=== PATIENT | male | born 1940 | race Caucasian/White ===

== ENCOUNTER 2020-07-05 09:32 | Day surgery (SDC) | payer MEDICARE ==
[~2020-07-05] VITALS: Ht 165.1 cm; Wt 81.0 kg
[~2020-07-05 09:32] MED LIST: ALLERCLEAR10 MG PO; FURO40 PO; Klor-Con 1010 MEQ PO; LISI20 PO; OMEP20ER PO; XARELTO20 MG PO; ZOLP5 PO
--- NOTE | 2020-07-05 10:07 | NUR ---
Ambulatory in Day Surgery History, Chart, Medications and Allergies reviewed before start of procedure. Lungs clear T/O to Auscultation. Pre-Op teaching done. Pt verbalizes understanding.
--- NOTE | 2020-07-05 15:40 | NUR ---
PT WORKING WITH THERAPY. WILL GIVE TXA WHEN DONE WORKING WITH THERAPY. FAMILY PRESENT.
--- NOTE | 2020-07-05 18:59 | NUR ---
SHIFT SUMMARY PT EATING AND DRINKING, VOIDING. PT WORKED WITH THERAPY TODAY. PT BEEN UP TO CHAIR. CALL LIGHT IN REACH. POLAR PAC AND TEDS IN PLACE.
--- NOTE | 2020-07-05 21:11 | NUR ---
ASSUMED CARE AT 1900 PT UP TO CHAIR, A/O X4. DENIES PAIN. RN NOTIFIED THAT PT HAD SOME EMESIS AROUND 1999. AFTER EPISODE OF EMESIS PT REPORTED HE FELT MUCH BETTER AND STATED HE DID NOT NEED MEDICATION FOR NAUSEA AT THAT TIME. PT UP IN CHAIR AT THIS TIME, POLAR PACK AND SCDS IN PLACE, CALL LIGHT IN REACH.
--- NOTE | 2020-07-06 04:41 | NUR ---
SHIFT SUMMARY PT IS A/O X4. SBA WITH GAIT BELT AND FWW TO AMBULATE. PT AMBULATING, TOLERATING PO INTAKE, AND VOIDING. UP TO CHAIR OVERNIGHT WITH LEGS ELEVATED, POLAR PACK ON, AND SCDS IN PLACE. PT HAD ONE EPISODE OF EMESIS EARLY IN THE SHIFT AND THEN REPORTED HE FELT MUCH BETTER AND DENIED NEED FOR NAUSEA MEDS. PT REPORTS THAT PAIN IS WELL MANAGED WITH TYLENOL/TORADOL AND ICE PACK. PT RESTING IN BED AT THIS TIME WITH CALL LIGHT IN REACH.
[2020-07-06 05:33] LABS: BASOPHILS ABSOLUTE AUTO 0.02 K/mm3 (0.00-0.23); BASOPHILS PERCENT AUTO 0 % (0-2); EOSINOPHILS ABSOLUTE AUTO 0.15 K/mm3 (0.00-0.68); EOSINOPHILS PERCENT AUTO 1 % (0-6); Hematocrit 41.3 % (37.0-53.0); IMMATURE GRAN ABSOLUTE AUTO 0.04 K/mm3 (0.00-0.10); IMMATURE GRAN PERCENT AUTO 0 % (0-1); LYMPHOCYTES ABSOLUTE AUTO 2.26 K/mm3 (0.84-5.20); LYMPHOCYTES PERCENT AUTO 21 % (21-46); MONOCYTES ABSOLUTE AUTO 0.83 K/mm3 (0.16-1.47); MONOCYTES PERCENT AUTO 8 % (4-13); Mean Corpuscular HGB 31.6 pg (26.0-34.0); Mean Corpuscular HGB Conc 33.9 g/dL (31.5-36.5); Mean Corpuscular Volume 93 fL (80-100); Mean Platelet Volume 10.5 fL (9.1-12.4); NEUTROPHILS ABSOLUTE AUTO 7.39 K/mm3 (1.96-9.15); NEUTROPHILS PERCENT AUTO 69 % (41-73); Platelet Count 179 K/mm3 (150-400); RDW Coefficient Variation 13.2 % (11.7-14.2); RDW Standard Deviation 45.7 fL (35.1-46.3); Red Blood Cell Count 4.43 M/mm3 (4.30-5.90); White Blood Cell Count 10.69 K/mm3 (4.00-11.30)
[2020-07-06 06:06] LABS: Anion Gap 8 mmol/L (6-16); Blood Urea Nitrogen 20 mg/dL (8-24); Bun/Creatinine Ratio 24.3 (12.0-20.0); CO2, Blood 26 mmol/L (21-32); Calcium, Blood 8.5 mg/dL (8.5-10.1); Chloride, Blood 104 mmol/L (98-108); Creatinine, Blood 0.82 mg/dL (0.60-1.20); Glomerular Filtration Rate >60 (60-); Glucose, Blood 145 mg/dL (70-99); Magnesium, Blood 2.1 mg/dL (1.6-2.4); Potassium, Blood 3.8 mmol/L (3.5-5.5); Sodium, Blood 138 mmol/L (136-145)
--- NOTE | 2020-07-06 07:41 | NUR ---
DR SAUNDERS HERE TO SEE PT AND CHANGED DRESSING.
[2020-07-06] MEDS ORDERED: ROXICODONE5 MG PO (07:46)
[2020-07-06] MEDS ORDERED: PROM25 PO (07:46)
--- NOTE | 2020-07-06 10:46 | NUR ---
PT WORKING WITH THERAPY.
--- NOTE | 2020-07-06 11:30 | NUR ---
DISCHARGE: PT REPORTS UNDERSTANDING OF DISCHARGE INSTRUCTIONS. PT REPORTS HAVING WALKER AND MEDICATIONS AT HOME. PT SENT WITH PAPERWORK, DRESSINGS, AND POLAR PAC. PT EATING AND DRINKING, VOIDING, PASSING GAS. PT BEEN CLEARED BY THERAPY TO GO HOME. PT GETTING RIDE HOME FROM .
== END 2020-07-06 11:31 | disposition home or self-care (01) ==
LOC: ORSCMMR 09:32 → ORD 11:15 → ORSCMMR 11:15 → SURS 14:09 → ORSCMMR 07-06 11:31 → SURS 07-06 11:31
PROVIDERS: Orthopaedic Surgery
PROC: 0SRD0J9 Replacement of Left Knee Joint with Synthetic Substitute, Cemented, Open Approach (ICD-10-PCS; principal; 2020-07-05 11:15)
PROC: 8E0YXBZ Computer Assisted Procedure of Lower Extremity (ICD-10-PCS; principal; 2020-07-05 11:15)
DX: M17.12 Unilateral primary osteoarthritis, left knee (principal); I10 Essential (primary) hypertension; K21.9 Gastro-esophageal reflux disease without esophagitis; I48.91 Unspecified atrial fibrillation; Z79.01 Long term (current) use of anticoagulants; Z79.899 Other long term (current) drug therapy
CPT/HCPCS: 36415; 73560-LT; 80048; 83735; 85025; 88300; 97110; 97116; 97162; 97530; A9270; C1713; C1776; J0171; J0690; J0735; J1885; J2250; J2704; J2795; J7120

== ENCOUNTER 2020-08-21 11:33 | Day surgery (SDC) | payer MEDICARE ==
[~2020-08-21] VITALS: Ht 165.1 cm; Wt 79.4 kg
[~2020-08-21 11:33] MED LIST changes: +PROM25 PO; +ROXICODONE5 MG PO
[2020-08-21] MEDS ORDERED: AMLO5 PO (12:04)
== END 2020-08-21 13:27 | disposition home or self-care (01) ==
LOC: ORSCSDS 11:33
PROVIDERS: Orthopaedic Surgery
PROC: 0SNDXZZ Release Left Knee Joint, External Approach (ICD-10-PCS; principal; 2020-08-21 12:45)
DX: M24.662 Ankylosis, left knee (principal); Z96.652 Presence of left artificial knee joint; I10 Essential (primary) hypertension; I49.9 Cardiac arrhythmia, unspecified; I48.91 Unspecified atrial fibrillation; K21.9 Gastro-esophageal reflux disease without esophagitis; Z87.891 Personal history of nicotine dependence; Z79.01 Long term (current) use of anticoagulants; Z79.899 Other long term (current) drug therapy
CPT/HCPCS: J1100; J2250; J2405; J2704; J3010